=== PATIENT | female | born 2000 | race Caucasian/White ===

== ENCOUNTER 2023-11-02 02:30 | Emergency (ER) | payer OTHER ==
[2023-11-02 02:58] VITALS: BMI 23.2
[2023-11-02] MEDS ORDERED: POLYETHYLENE GLYCOL (HEALTHYLAX) 3350 17 GM PACKET ONE (04:24)
[2023-11-02] MEDS: POLYETHYLENE GLYCOL (HEALTHYLAX) 3350 17 GM PACKET PO SCH (04:26)
[2023-11-02 05:35] VITALS: BP 116/68; PULSE 109; RESP 17; TEMP 98.5
== END 2023-11-02 06:07 | disposition home or self-care (01) ==
LOC: JER 02:30
DX: O99.613 Diseases of the digestive system complicating pregnancy, third trimester (principal); K59.00 Constipation, unspecified; Z3A.34 34 weeks gestation of pregnancy
CPT/HCPCS: 99283-25